=== PATIENT | female | born 1990 | race Caucasian/White ===

== ENCOUNTER 2017-12-22 19:12 | Emergency (ER) | payer SELFPAY ==
[2017-12-22 19:17] VITALS: BP 128/75
[2017-12-22] MEDS ORDERED: IBUPROFEN 800 MG TABLET PO ONE (20:01)
[2017-12-22 20:05] LABS: APPEARANCE,URINE CLEAR; BILIRUBIN,URINE NEGATIVE (NEGATIVE); COLOR,URINE STRAW; GLUCOSE, URINE NEGATIVE (NEGATIVE); KETONES,URINE NEGATIVE (NEGATIVE); LEUKOCYTE ESTERASE,URINE NEGATIVE (NEGATIVE); NITRITE,URINE NEGATIVE (NEGATIVE); PROTEIN,URINE NEGATIVE (NEGATIVE); URINE SPECIFIC GRAVITY 1.003; UROBILINOGEN,URINE NEGATIVE mg/dL (<2.0)
--- NOTE | 2017-12-22 20:12 | ER Document Report ---
ED General - General Chief Complaint: Back Pain Stated Complaint: PAIN ALL OVER Time Seen by Provider: 12/22/17 19:43 Mode of Arrival: Ambulatory Information source: Patient Notes: 27-year-old female presents with complaints of generalized body aches flank pain on the right with burning. Patient denies any fevers or chills notes is similar to previous urinary tract infections patient denies any vaginal bleeding or discharge TRAVEL OUTSIDE OF THE [place] IN LAST 30 DAYS: No - HPI Onset: Just prior to arrival Onset/Duration: Persistent Quality of pain: Achy Severity: Mild Pain Level: 1 Associated symptoms: Body/muscle aches, Other Exacerbated by: Other - urination Relieved by: Denies Similar symptoms previously: Yes Recently seen / treated by doctor: No - Related Data Allergies/Adverse Reactions: cephalexin monohydrate [From Keflex] Allergy (Intermediate, Verified 06/01/17 13 :41) Hives nitrofurantoin [From Macrobid] Allergy (Intermediate, Verified 06/01/17 13:41) Shortness of Breath nitrofurantoin macrocrystalline [From Macrobid] Allergy (Intermediate, Verified 06/01/17 13:41) Shortness of Breath penicillin G [Penicillin G] Allergy (Intermediate, Verified 06/01/17 13:41) Hives Sulfa (Sulfonamide Antibiotics) Allergy (Intermediate, Verified 06/01/17 13:41) Hives bacitracin [From Neosporin] Allergy (Verified 06/01/17 13:41) Hives bacitracin zinc [From Neosporin] Allergy (Verified 06/01/17 13:41) Hives gramicidin D [From Neosporin] Allergy (Verified 06/01/17 13:41) Hives neomycin sulfate [From Neosporin] Allergy (Verified 06/01/17 13:41) Hives polymyxin B [From Neosporin] Allergy (Verified 06/01/17 13:41) Hives polymyxin B sulfate [From Neosporin] Allergy (Verified 06/01/17 13:41) Hives Past Medical History - Social History Smoking Status: Never Smoker Cigarette use (# per day): No Chew tobacco use (# tins/day): No Smoking Education Provided: No Frequency of alcohol use: None Drug Abuse: None Family History: Reviewed & Not Pertinent Patient has suicidal ideation: No Patient has homicidal ideation: No - Past Medical History Cardiac Medical History: Denies: Hx Coronary Artery Disease, Hx Heart Attack, Hx Hypertension Pulmonary Medical History: Denies: Hx Asthma, Hx Bronchitis, Hx COPD, Hx Pneumonia Neurological Medical History: Reports: Hx Migraine. Denies: Hx Cerebrovascular Accident, Hx Seizures Renal/ Medical History: Denies: Hx Peritoneal Dialysis Musculoskeltal Medical History: Denies Hx Arthritis Past Surgical History: Reports: Hx Section, Hx Tubal Ligation - Immunizations Immunizations up to date: Yes Hx Diphtheria, Pertussis, Tetanus Vaccination: Yes Review of Systems - Review of Systems Notes: REVIEW OF SYSTEMS: CONSTITUTIONAL : Denies fever, chills, or sweats. Denies recent illness. EENT: Denies eye, ear, throat, or mouth pain or symptoms. Denies nasal or sinus congestion or discharge. Denies throat, tongue, or mouth swelling or difficulty swallowing. CARDIOVASCULAR: Denies chest pain. Denies palpitations or racing or irregular heart beat. Denies ankle edema. RESPIRATORY: Denies cough, cold, or chest congestion. Denies shortness of breath, difficulty breathing, or wheezing. GASTROINTESTINAL: Admits to right flank pain GENITOURINARY: Admits to burning on urination FEMALE GENITOURINARY: Denies vaginal bleeding, heavy or abnormal periods, irregular periods. Denies vaginal discharge or odor. MUSCULOSKELETAL: Admits to body aches. SKIN: Denies rash, lesions or sores. HEMATOLOGIC : Denies easy bruising or bleeding. LYMPHATIC: Denies swollen, enlarged glands. NEUROLOGICAL: Denies confusion or altered mental status. Denies passing out or loss of consciousness. Denies dizziness or lightheadedness. Denies headache. Denies weakness or paralysis or loss of use of either side. Denies problems with gait or speech. Denies sensory loss, numbness, or tingling. Denies seizures. PSYCHIATRIC: Denies anxiety or stress. Denies depression, suicidal ideation, or homicidal ideation. ALL OTHER SYSTEMS REVIEWED AND NEGATIVE. PHYSICAL EXAMINATION: GENERAL: Well-appearing, well-nourished and in no acute distress. HEAD: Atraumatic, normocephalic. EYES: Pupils equal round and reactive to light, extraocular movements intact, conjunctiva are normal. ENT: Nares patent, oropharynx clear without exudates. Moist mucous membranes. NECK: Normal range of motion, supple without lymphadenopathy LUNGS: Breath sounds clear to auscultation bilaterally and equal. No wheezes rales or rhonchi. HEART: Regular rate and rhythm without murmurs ABDOMEN: Soft, nontender, nondistended abdomen. No guarding, no rebound. No masses appreciated. Right CVA tenderness Female : deferred Musculoskeletal: Normal range of motion, no pitting or edema. No cyanosis. NEUROLOGICAL: Cranial nerves grossly intact. Normal speech, normal gait. Normal sensory, motor exams PSYCH: Normal mood, normal affect. SKIN: Warm, Dry, normal turgor, no rashes or lesions noted. Dictation was performed using [employer] voice recognition software Physical Exam - Vital signs Vitals: Temp Pulse Resp BP Pulse Ox 99.6 F 93 18 128/75 H 100 12/22/17 19:16 12/22/17 19:16 12/22/17 19:16 12/22/17 19:16 12/22/17 19:16 Course - Re-evaluation Re-evalutation: 12/22/17 20:10 Patient's presentation most consistent with UTI/Pylo, she denies any concerns for STDs, I explained to her that 3+ bacteria is noted in the urine. Patient will be treated for the UTI and given very strict return precautions After performing a Medical Screening Examination, I estimate there is LOW risk for ACUTE APPENDICITIS, BOWEL OBSTRUCTION, ACUTE CHOLECYSTITIS, PERFORATED DIVERTICULITIS, INCARCERATED HERNIA, PANCREATITIS, PELVIC INFLAMMATORY DISEASE, PERFORATED ULCER, ECTOPIC , or TUBO-OVARIAN ABSCESS, thus I consider the discharge disposition reasonable. Also, there is no evidence or peritonitis , sepsis, or toxicity. I have reevaluated this patient multiple times and no significant life threatening changes are noted. The patient and I have discussed the diagnosis and risks, and we agree with discharging home with close follow-up with the understanding that symptoms and presentations can change. We also discussed returning to the Emergency Department immediately if new or worsening symptoms occur. We have discussed the symptoms which are most concerning (e.g., bloody stool, fever, changing or worsening pain, vomiting) that necessitate immediate return. - Vital Signs Vital signs: Temp Pulse Resp BP Pulse Ox 99.6 F 93 18 128/75 H 100 12/22/17 19:16 12/22/17 19:16 12/22/17 19:16 12/22/17 19:16 12/22/17 19:16 Discharge - Discharge Clinical Impression: Body aches UTI (urinary tract infection) Qualifiers: Urinary tract infection type: acute cystitis Hematuria presence: without hematuria Qualified Code(s): N30.00 - Acute cystitis without hematuria Condition: Stable Disposition: HOME, SELF-CARE Instructions: Urinary Tract Infection ([facility]) Additional Instructions: Follow up with your physician tomorrow for further care or return to the ED IMMEDIATELY if symptoms worsen or new concerns occur. If you cannot afford to follow up with your primary care physician a list of low cost clinics have been provided at the end of your discharge papers as well. Prescriptions: Ciprofloxacin HCl [Cipro 500 mg Tablet] 500 mg PO BID #20 tablet
== END 2017-12-22 20:14 | disposition home or self-care (01) ==
LOC: ER 19:12
DX: N30.00 Acute cystitis without hematuria (principal); M79.1 Myalgia; M54.9 Dorsalgia, unspecified; R30.9 Painful micturition, unspecified
CPT/HCPCS: 81001; 81025; 99283

== ENCOUNTER 2018-05-25 13:56 | Emergency (ER) | payer SELFPAY ==
--- NOTE | 2018-05-25 14:47 | ER Document Report ---
ED Medical Screen (RME) - General Chief Complaint: Rib Pain Stated Complaint: POSSIBLE UTI Time Seen by Provider: 05/25/18 14:36 Mode of Arrival: Ambulatory Information source: Patient Notes: 27-year-old female presents emergency department with complaints of right upper quadrant abdominal pain for the last 4 days. She describes it as a sharp and stabbing sensation. She states that it radiates to the right shoulder. She denies any exacerbating factors. Patient states that laying flat helps with her pain. Patient states that she has had some intermittent fever and chills. She states that she was just seen at another hospital on Monday and diagnosed with a urinary tract infection and started on Cipro. Patient states that she has been taking the medication as directed. She denies lower abdominal pain, dysuria, hematuria, increased urgency/frequency nausea, vomiting. She states that this morning a tampon fell out from a month ago. I have greeted and performed a rapid initial assessment of this patient. A comprehensive ED assessment and evaluation of the patient, analysis of test results and completion of the medical decision making process will be conducted by additional ED providers. PHYSICAL EXAMINATION: GENERAL: Well-appearing, well-nourished and in no acute distress. HEAD: Atraumatic, normocephalic. EYES: Pupils equal round extraocular movements intact, conjunctiva are normal. ENT: Nares patent NECK: Normal range of motion LUNGS: No respiratory distress Musculoskeletal: Normal range of motion NEUROLOGICAL: Normal speech, normal gait. PSYCH: Normal mood, normal affect. SKIN: Warm, Dry, normal turgor, no rashes or lesions noted. TRAVEL OUTSIDE OF THE [place] IN LAST 30 DAYS: No - Related Data Allergies/Adverse Reactions: cephalexin monohydrate [From Keflex] Allergy (Intermediate, Verified 05/25/18 13 :57) Hives nitrofurantoin [From Macrobid] Allergy (Intermediate, Verified 05/25/18 13:57) Shortness of Breath nitrofurantoin macrocrystalline [From Macrobid] Allergy (Intermediate, Verified 05/25/18 13:57) Shortness of Breath penicillin G [Penicillin G] Allergy (Intermediate, Verified 05/25/18 13:57) Hives Sulfa (Sulfonamide Antibiotics) Allergy (Intermediate, Verified 05/25/18 13:57) Hives bacitracin [From Neosporin] Allergy (Verified 05/25/18 13:57) Hives bacitracin zinc [From Neosporin] Allergy (Verified 05/25/18 13:57) Hives gramicidin D [From Neosporin] Allergy (Verified 05/25/18 13:57) Hives neomycin sulfate [From Neosporin] Allergy (Verified 05/25/18 13:57) Hives polymyxin B [From Neosporin] Allergy (Verified 05/25/18 13:57) Hives polymyxin B sulfate [From Neosporin] Allergy (Verified 05/25/18 13:57) Hives Past Medical History - Social History Family history: Hypertension - Past Medical History Cardiac Medical History: Denies: Hx Coronary Artery Disease, Hx Heart Attack, Hx Hypertension Pulmonary Medical History: Denies: Hx Asthma, Hx Bronchitis, Hx COPD, Hx Pneumonia Neurological Medical History: Reports: Hx Migraine. Denies: Hx Cerebrovascular Accident, Hx Seizures Renal/ Medical History: Denies: Hx Peritoneal Dialysis Musculoskeltal Medical History: Denies Hx Arthritis Past Surgical History: Reports: Hx Section, Hx Tubal Ligation - Immunizations Immunizations up to date: Yes Hx Diphtheria, Pertussis, Tetanus Vaccination: Yes Physical Exam - Vital signs Vitals: Temp Pulse Resp BP Pulse Ox 99.0 F 80 16 131/88 H 98 05/25/18 13:59 05/25/18 13:59 05/25/18 13:59 05/25/18 13:59 05/25/18 13:59 Course - Vital Signs Vital signs: Temp Pulse Resp BP Pulse Ox 99.0 F 80 16 131/88 H 98 05/25/18 13:59 05/25/18 13:59 05/25/18 13:59 05/25/18 13:59 05/25/18 13:59
[2018-05-25 15:19] LABS: ABSOLUTE BASOPHILS # (AUTO) 0.1 10^3/uL (0.0-0.2); ABSOLUTE EOSINOPHILS # (AUTO) 0.4 10^3/uL (0.0-0.6); ABSOLUTE LYMPHOCYTES (AUTO) 1.6 10^3/uL (0.5-4.7); ABSOLUTE MONOCYTES (AUTO) 0.6 10^3/uL (0.1-1.4); ABSOLUTE NEUT (AUTO) 2.8 10^3/uL (1.7-8.2); BASOPHILS % (AUTO) 1.5 % (0-2); EOSINOPHILS % (AUTO) 6.6 % (0-6); HEMATOCRIT 40.6 % (36.0-47.0); HEMOGLOBIN 13.9 g/dL (12.0-15.5); LYMPHOCYTES % (AUTO) 29.6 % (13-45); MEAN CORPUSCULAR HEMOGLOBIN 29.7 pg (27.0-33.4); MEAN CORPUSCULAR HGB CONC 34.2 g/dL (32.0-36.0); MEAN CORPUSCULAR VOLUME 87 fl (80-97); MONOCYTES % (AUTO) 10.4 % (3-13); PLATELET COUNT 290 10^3/uL (150-450); RED BLOOD COUNT 4.67 10^6/uL (3.72-5.28); RED CELL DISTRIBUTION WIDTH 14.5 % (11.5-14.0); SEGMENTED NEUTROPHILS % (AUTO) 51.9 % (42-78); TOTAL CELLS COUNTED % (AUTO) 100 %; WHITE BLOOD COUNT 5.3 10^3/uL (4.0-10.5)
[2018-05-25 15:21] LABS: APPEARANCE,URINE CLEAR; BILIRUBIN,URINE NEGATIVE (NEGATIVE); COLOR,URINE STRAW; GLUCOSE, URINE NEGATIVE (NEGATIVE); KETONES,URINE NEGATIVE (NEGATIVE); LEUKOCYTE ESTERASE,URINE NEGATIVE (NEGATIVE); NITRITE,URINE NEGATIVE (NEGATIVE); PROTEIN,URINE NEGATIVE (NEGATIVE); URINE SPECIFIC GRAVITY 1.005; UROBILINOGEN,URINE NEGATIVE mg/dL (<2.0)
--- NOTE | 2018-05-25 15:46 | RADIOLOGY REPORT (SQ) ---
EXAM DESCRIPTION: U/S ABDOMEN LTD W/DOPPLER COMPLETED DATE/TIME: 05/25/2018 3:36 pm REASON FOR STUDY: RUQ abdominal pain COMPARISON: None. TECHNIQUE: Dynamic and static grayscale images acquired of the abdomen and recorded on PACS. Additio fausto selected color Doppler and spectral images recorded. LIMITATIONS: None. FINDINGS: PANCREAS: No masses. Visualized pancreatic duct normal caliber. LIVER: No masses. Echotexture normal. LIVER VASCULATURE: Normal directional flow of the main portal vein and hepatic veins. GALLBLADDER: No stones. Normal wall thickness. No pericholecystic fluid. ULTRASOUND-DETECTED NEVAREZ'S SIGN: Negative. INTRAHEPATIC DUCTS AND COMMON DUCT: CBD and intrahepatic ducts normal caliber. No filling defects. INFERIOR VENA CAVA: Not imaged. AORTA: No aneurysm. RIGHT KIDNEY: Normal size, 10.5 cm. Normal echogenicity. No solid or suspicious masses. No hydroneph rosis. No calcifications. PERITONEAL AND RIGHT PLEURAL SPACE: No ascites or effusions. OTHER: No other significant findings. IMPRESSION: NORMAL RIGHT UPPER QUADRANT ULTRASOUND. TECHNICAL DOCUMENTATION: JOB ID: [id number]- All Rights Reserved Reading location - IP/workstation name: [email or web address]
[2018-05-25 15:53] LABS: ALANINE AMINOTRANSFERASE 15 U/L (9-52); ALBUMIN 4.3 g/dL (3.5-5.0); ALKALINE PHOSPHATASE 70 U/L (38-126); ANION GAP 13 (5-19); ASPARTATE AMINO TRANSFERASE 21 U/L (14-36); BILIRUBIN,DIRECT 0.1 mg/dL (0.0-0.4); BILIRUBIN,TOTAL 0.2 mg/dL (0.2-1.3); BLOOD UREA NITROGEN 4 mg/dL (7-20); CALCIUM 9.3 mg/dL (8.4-10.2); CARBON DIOXIDE 28 mmol/L (22-30); CHLORIDE 105 mmol/L (98-107); GLUCOSE 85 mg/dL (75-110); LIPASE 52.4 U/L (23-300); POTASSIUM 4.7 mmol/L (3.6-5.0); SODIUM 146.1 mmol/L (137-145); TOTAL PROTEIN 7.5 g/dL (6.3-8.2)
--- NOTE | 2018-05-25 16:40 | ER Document Report ---
ED General - General Chief Complaint: Rib Pain Stated Complaint: POSSIBLE UTI Time Seen by Provider: 05/25/18 14:36 Mode of Arrival: Ambulatory Information source: Patient, [facility] Records Notes: 27-year-old female with no reported past medical history presents with complaint of right upper quadrant, right flank pain that started 5 days prior to arrival. Patient states that she was seen in another emergency department on Monday and diagnosed with a urinary tract infection and placed on Cipro. She states since that time the pain has worsened. She describes it as sharp, intermittent. Patient also reports that yesterday a tampon fell out of her wall going to the bathroom. She states that she believes it is at least 1 month old. She does admit to noticing a foul odor which has now resolved after the tampon was removed. She denies any vaginal discharge. She is sexually active with her . Has a history of tubal ligation. Patient admits to subjective fever, chills, nausea. TRAVEL OUTSIDE OF THE [place] IN LAST 30 DAYS: No - HPI Onset: Other Onset/Duration: Gradual, Persistent Quality of pain: Throbbing Severity: Mild Associated symptoms: Fever, Nausea Exacerbated by: Denies Relieved by: Denies Similar symptoms previously: Yes Recently seen / treated by doctor: Yes - May 22 2018 - Related Data Allergies/Adverse Reactions: cephalexin monohydrate [From Keflex] Allergy (Intermediate, Verified 05/25/18 13 :57) Hives nitrofurantoin [From Macrobid] Allergy (Intermediate, Verified 05/25/18 13:57) Shortness of Breath nitrofurantoin macrocrystalline [From Macrobid] Allergy (Intermediate, Verified 05/25/18 13:57) Shortness of Breath penicillin G [Penicillin G] Allergy (Intermediate, Verified 05/25/18 13:57) Hives Sulfa (Sulfonamide Antibiotics) Allergy (Intermediate, Verified 05/25/18 13:57) Hives bacitracin [From Neosporin] Allergy (Verified 05/25/18 13:57) Hives bacitracin zinc [From Neosporin] Allergy (Verified 05/25/18 13:57) Hives gramicidin D [From Neosporin] Allergy (Verified 05/25/18 13:57) Hives neomycin sulfate [From Neosporin] Allergy (Verified 05/25/18 13:57) Hives polymyxin B [From Neosporin] Allergy (Verified 05/25/18 13:57) Hives polymyxin B sulfate [From Neosporin] Allergy (Verified 05/25/18 13:57) Hives Past Medical History - General Information source: Patient - Social History Smoking Status: Never Smoker Frequency of alcohol use: None Drug Abuse: Marijuana Lives with: Spouse/Significant other Family History: Reviewed & Not Pertinent Patient has suicidal ideation: No Patient has homicidal ideation: No - Medical History Medical History: Negative - Past Medical History Cardiac Medical History: Denies: Hx Coronary Artery Disease, Hx Heart Attack, Hx Hypertension Pulmonary Medical History: Denies: Hx Asthma, Hx Bronchitis, Hx COPD, Hx Pneumonia Neurological Medical History: Reports: Hx Migraine. Denies: Hx Cerebrovascular Accident, Hx Seizures Renal/ Medical History: Denies: Hx Peritoneal Dialysis Musculoskeletal Medical History: Denies Hx Arthritis Past Surgical History: Reports: Hx Section, Hx Tubal Ligation - Immunizations Immunizations up to date: Yes Hx Diphtheria, Pertussis, Tetanus Vaccination: Yes Review of Systems - Review of Systems Notes: REVIEW OF SYSTEMS: CONSTITUTIONAL : Denies weight loss, recent hospitalizations. EENT: Denies visual changes, eye pain. Denies sore throat, oral lesions, difficulty swallowing. CARDIOVASCULAR: Denies chest pain. Denies palpitations. Denies lower extremity edema. RESPIRATORY: Denies cough. Denies shortness of breath, wheezing. GASTROINTESTINAL: Denies abdominal distention. Denies nausea, vomiting, or diarrhea. Denies blood in vomitus, stools, or per rectum. Denies black, tarry stools. Denies constipation. GENITOURINARY: Denies difficulty urinating, painful urination, frequency, blood in urine, or vaginal discharge. MUSCULOSKELETAL: Denies back or neck pain or stiffness. Denies joint pain or swelling. SKIN: Denies rash, lesions or sores. HEMATOLOGIC : Denies easy bruising or bleeding. LYMPHATIC: Denies swollen glands. NEUROLOGICAL: Denies confusion or altered mental status. Denies loss of consciousness. Denies dizziness or lightheadedness. Denies headache. Denies weakness or paralysis. Denies problems difficulty with ambulation, slurred speech. Denies sensory loss, numbness, or tingling. Denies seizures. PSYCHIATRIC: Denies anxiety or stress. Denies depression, suicidal ideation, or homicidal ideation. Denies visual or auditory hallucinations. Physical Exam - Vital signs Vitals: Temp Pulse Resp BP Pulse Ox 99.0 F 80 16 131/88 H 98 05/25/18 13:59 05/25/18 13:59 05/25/18 13:59 05/25/18 13:59 05/25/18 13:59 - Notes Notes: PHYSICAL EXAMINATION: GENERAL: Well-appearing, well-nourished and in no acute distress. HEAD: Atraumatic, normocephalic. EYES: Pupils equal round and reactive to light, extraocular movements intact, conjunctiva are normal. ENT: Nares patent, oropharynx clear without exudates. Moist mucous membranes. NECK: Normal range of motion, supple without lymphadenopathy LUNGS: Breath sounds clear to auscultation bilaterally and equal. No wheezes rales or rhonchi. HEART: Regular rate and rhythm without murmurs ABDOMEN: Right CVA tenderness, mild tenderness to palpation in the right upper quadrant. No guarding, no rebound. No masses appreciated. Female : Pelvic exam; External genitalia unremarkable. Speculum exam with no discharge. Patient currently menstruating vaginal wall unremarkable. Os closed. No cervical motion tenderness. No adnexal tenderness or masses appreciated. Swabs obtained for gonorrhea, chlamydia and wet prep. Musculoskeletal: Normal range of motion, no pitting or edema. No cyanosis. NEUROLOGICAL: Cranial nerves grossly intact. Normal speech, normal gait. Normal sensory, motor exams PSYCH: Normal mood, normal affect. SKIN: Warm, Dry, normal turgor, no rashes or lesions noted. Course - Re-evaluation Re-evalutation: 05/25/18 17:06 Laboratory 05/25/18 05/25/18 05/25/18 14:50 14:50 14:50 WBC 5.3 RBC 4.67 Hgb 13.9 Hct 40.6 MCV 87 MCH 29.7 MCHC 34.2 RDW 14.5 H Plt Count 290 Seg Neutrophils % 51.9 Lymphocytes % 29.6 Monocytes % 10.4 Eosinophils % 6.6 H Basophils % 1.5 Absolute Neutrophils 2.8 Absolute Lymphocytes 1.6 Absolute Monocytes 0.6 Absolute Eosinophils 0.4 Absolute Basophils 0.1 Sodium 146.1 H Potassium 4.7 Chloride 105 Carbon Dioxide 28 Anion Gap 13 BUN 4 L Creatinine 0.62 Est GFR ( Amer) > 60 Est GFR (Non-Af Amer) > 60 Glucose 85 Calcium 9.3 Total Bilirubin 0.2 Direct Bilirubin 0.1 Neonat Total Bilirubin Not Reportable Neonat Direct Bilirubin Not Reportable Neonat Indirect Bili Not Reportable AST 21 ALT 15 Alkaline Phosphatase 70 Total Protein 7.5 Albumin 4.3 Lipase 52.4 Urine Color STRAW Urine Appearance CLEAR Urine pH 8.0 Ur Specific [place] 1.005 Urine Protein NEGATIVE Urine Glucose (UA) NEGATIVE Urine Ketones NEGATIVE Urine Blood LARGE H Urine Nitrite NEGATIVE Urine Bilirubin NEGATIVE Urine Urobilinogen NEGATIVE Ur Leukocyte Esterase NEGATIVE Urine WBC (Auto) 1 Urine RBC (Auto) 68 Squamous Epi Cells Auto <1 Urine Mucus (Auto) RARE Urine Ascorbic Acid NEGATIVE Urine HCG, Qual NEGATIVE Abdomen Ultrasound 05/25/18 14:42 IMPRESSION: NORMAL RIGHT UPPER QUADRANT ULTRASOUND. 05/26/18 20:20 27-year-old female with no reported past medical history presents with complaint of right upper quadrant, right flank pain that started 5 days prior to arrival. Patient states that she was seen in another emergency department on Monday and diagnosed with a urinary tract infection and placed on Cipro. She states since that time the pain has worsened. She describes it as sharp, intermittent. Patient also reports that yesterday a tampon fell out of her wall going to the bathroom. She states that she believes it is at least 1 month old. She does admit to noticing a foul odor which has now resolved after the tampon was removed. She denies any vaginal discharge. Vital signs stable upon arrival. Patient is afebrile, normotensive and not hypoxic. She does not appear toxic or dehydrated. She is in no acute distress. Exam is significant for right upper quadrant tenderness and right CVA tenderness. Right upper quadrant ultrasound was obtained and showed no evidence of cholecystitis, cholelithiasis. CBC is without leukocytosis or anemia. CMP shows no significant electrolyte abnormalities. Urinalysis does not show evidence of urinary tract infection. Swabs that were obtained showed no evidence of bacterial vaginosis, gonorrhea, chlamydia, trichomonas. Unclear the etiology of patient's flank pain. Patient did receive Zofran for pain and nausea. On reevaluation she states her pain has improved although it still present. 05/26/18 20:23 05/26/18 20:23 05/26/18 20:24 Chest x-ray was also obtained and showed no evidence of pneumonia. Patient was evaluated and treated as appropriate for the patient's presenting symptoms and complaint, with consideration of any critical or life threatening conditions that may be associated with their obtained history and exam as noted above. All results were discussed with patient. Patient provided the opportunity to ask questions, and express concerns. Patient was educated on treatments based on their presumed diagnosis as noted above. At this time we will discharge the patient with return precautions and follow-up recommendations. Verbal discharge instructions given a the bedside. Medication warnings reviewed. Patient is in agreement with this plan and has verbalized understanding of return precautions. After careful consideration I feel that that patient can be safely discharged from the emergency department, they were advised to followup with a primary care physician in 2-3 days. Dictation on this chart was performed using voice recognition software and may result in unintended grammatical, spelling, syntax or errors. - Vital Signs Vital signs: Temp Pulse Resp BP Pulse Ox 98.2 F 64 18 115/77 100 05/25/18 18:12 05/25/18 18:12 05/25/18 18:12 05/25/18 18:12 05/25/18 18:12 - Laboratory Result Diagrams: 05/25/18 14:50 05/25/18 14:50 Laboratory results interpreted by me: 05/25/18 05/25/18 05/25/18 14:50 14:50 14:50 RDW 14.5 H Eosinophils % 6.6 H Sodium 146.1 H BUN 4 L Urine Blood LARGE H - Diagnostic Test Radiology reviewed: Image reviewed, Reports reviewed Discharge - Discharge Clinical Impression: Right flank pain, Right upper quadrant abdominal pain, UTI-recent diagnosis currently on antibi Condition: Good Disposition: HOME, SELF-CARE Instructions: Abdominal Pain ([facility]), Flank Pain ([facility]), Observation for Appendicitis ([facility]) Additional Instructions: You have been seen in the Emergency Department (ED) for abdominal pain. Your evaluation did not identify a clear cause of your symptoms but was generally reassuring. Please follow up with your doctor as soon as possible regarding today's emergent visit and the symptoms that are bothering you. Return to the ED if your abdominal pain worsens or fails to improve, you develop bloody vomiting, bloody diarrhea, you are unable to tolerate fluids due to vomiting, fever greater than 101, or other symptoms that concern you. Prescriptions: Tramadol HCl 50 mg PO Q8H #12 tablet Forms: Return to Work
[2018-05-25] MEDS ORDERED: ONDANSETRON HCL INJ/PF 4 MG/2 ML SDV IV ONE (17:07)
[2018-05-25] MEDS ORDERED: MORPHINE SULFATE 10 MG/ML INJ IV ONE (17:07)
[2018-05-25 17:29] LABS: RBCS (WET MOUNT) 4+ RBCS SEEN; T.VAGINALIS (WET MOUNT) NO TRICHOMONAS SEEN; WBCS (WET MOUNT) FEW WBCS SEEN; YEAST (WET MOUNT) NO YEAST SEEN
[2018-05-25 18:13] VITALS: BP 115/77
[2018-05-25 18:55] LABS: CHLAM PCR NOT DETECTED (NOT DETECT); GON PCR NOT DETECTED (NOT DETECT)
--- NOTE | 2018-05-25 21:49 | RADIOLOGY REPORT (SQ) ---
EXAM DESCRIPTION: XR CHEST 2 VIEWS COMPLETED DATE/TME: 05/25/2018 17:08 CLINICAL HISTORY: 27 years, Female, right rib pain COMPARISON: None. NUMBER OF VIEWS: 2 TECHNIQUE: Frontal and lateral views of the chest LIMITATIONS: None. FINDINGS: Heart size is normal. Lungs are clear. No pneumothorax IMPRESSION: Negative chest 2010 [facility] [email or web address]- All Rights Reserved
== END 2018-05-25 19:08 | disposition home or self-care (01) ==
LOC: ER 13:56
DX: N39.0 Urinary tract infection, site not specified (principal); R10.11 Right upper quadrant pain; R07.81 Pleurodynia
CPT/HCPCS: 99284; 96374; 96375; 36415; 87210; 83690; 85025; 81025; 80053; 81001; 87491; 87591; 71046; 76705; 93976; J2270; J2405

== ENCOUNTER 2019-01-07 18:49 | Emergency (ER) | payer SELFPAY ==
--- NOTE | 2019-01-07 20:27 | ER Document Report ---
ED Medical Screen (RME) - General Stated Complaint: EAR PAIN Time Seen by Provider: 01/07/19 20:26 Mode of Arrival: Ambulatory Information source: Patient Notes: She presents to the emergency department with complaints of left ear clogged started yesterday and her right ear is hurting starting today. She also reports her throat hurts is and she is dizzy. She reports she had a fever of 100.6 on Monday. Denies trauma. Denies history of surgery to the ears. I have greeted and performed a rapid initial assessment of this patient. A comprehensive ED assessment and evaluation of the patient, analysis of test results and completion of the medical decision making process will be conducted by additional ED providers. Dictation of this chart was performed using voice recognition software; therefore, there may be some unintended grammatical errors. TRAVEL OUTSIDE OF THE [place] IN LAST 30 DAYS: No - Related Data Allergies/Adverse Reactions: cephalexin monohydrate [From Keflex] Allergy (Intermediate, Verified 05/25/18 13:57) Hives nitrofurantoin [From Macrobid] Allergy (Intermediate, Verified 05/25/18 13:57) Shortness of Breath nitrofurantoin macrocrystalline [From Macrobid] Allergy (Intermediate, Verified 05/25/18 13:57) Shortness of Breath penicillin G [Penicillin G] Allergy (Intermediate, Verified 05/25/18 13:57) Hives Sulfa (Sulfonamide Antibiotics) Allergy (Intermediate, Verified 05/25/18 13:57) Hives bacitracin [From Neosporin] Allergy (Verified 05/25/18 13:57) Hives bacitracin zinc [From Neosporin] Allergy (Verified 05/25/18 13:57) Hives gramicidin D [From Neosporin] Allergy (Verified 05/25/18 13:57) Hives neomycin sulfate [From Neosporin] Allergy (Verified 05/25/18 13:57) Hives polymyxin B [From Neosporin] Allergy (Verified 05/25/18 13:57) Hives polymyxin B sulfate [From Neosporin] Allergy (Verified 05/25/18 13:57) Hives Past Medical History - Social History Family history: Hypertension - Past Medical History Cardiac Medical History: Denies: Hx Coronary Artery Disease, Hx Heart Attack, Hx Hypertension Pulmonary Medical History: Denies: Hx Asthma, Hx Bronchitis, Hx COPD, Hx Pneumonia Neurological Medical History: Reports: Hx Migraine. Denies: Hx Cerebrovascular Accident, Hx Seizures Renal/ Medical History: Denies: Hx Peritoneal Dialysis Musculoskeltal Medical History: Denies Hx Arthritis Past Surgical History: Reports: Hx Section, Hx Tubal Ligation - Immunizations Immunizations up to date: Yes Hx Diphtheria, Pertussis, Tetanus Vaccination: Yes
[2019-01-07 20:36] VITALS: BP 140/86
== END 2019-01-07 23:46 | disposition left against medical advice (07) ==
LOC: ER 18:49
DX: H92.01 Otalgia, right ear (principal); R42 Dizziness and giddiness; J02.9 Acute pharyngitis, unspecified; Z88.1 Allergy status to other antibiotic agents; Z88.0 Allergy status to penicillin; Z88.8 Allergy status to other drugs, medicaments and biological substances; Z98.51 Tubal ligation status; Z53.21 Procedure and treatment not carried out due to patient leaving prior to being seen by health care provider
CPT/HCPCS: 99281